=== PATIENT | female | born 1960 | race Asian ===

== ENCOUNTER 2016-08-11 08:02 | Outpatient (CLI) | payer BC ==
[2016-08-11 08:48] LABS: Blood Urea Nitrogen 12 mg/dL (7-17)
--- NOTE | 2016-08-11 09:54 | Magnetic Resonance Report ---
MRI BRAIN WITH/WITHOUT CONTRAST: History: Meningioma, brain mass. Technique: Multiple T1 and T2 weighted images were obtained in multiple planes. Axial diffusion and gradient imaging was performed. Post contrast T1 images in two planes were obtained following IV gadolinium. Findings: No comparison at this facility. There are 2 homogeneously enhancing extra-axial masses in the posterior fossa consistent with meningiomas. One meningioma located along the left side of the foramen magnum and measures 1.7 x 1.6 x 1.8 cm. The mass encircles the left vertebral artery and exerts mild mass effect on the left side of the brainstem. No abnormal parenchymal signal in the brainstem. The second meningioma is located in the prepontine fossa and tracks along the posterior surface of the clivus. This mass measures 3.0 x 3.0 x 1.0 cm. This mass encircles the basilar artery and exerts minimal mass effect on the right side of the rishi. No abnormal parenchymal signal. The brain parenchyma signal intensity and its russell-white interface are normal on all sequences. No abnormal parenchymal signal. No diffusion restriction, hemorrhage, or extra-axial fluid collection. Ventricular size is normal and symmetric. The basal cisterns are clear. The brainstem and cerebellar hemispheres are within normal limits. The fourth ventricle is midline. The paranasal sinuses and mastoid air cells are well aerated. Normal flow voids are identified in the appropriate vessels at the [facility] [place]. No abnormal enhancement is identified following IV gadolinium. Impression: There are 2 homogeneously enhancing extra-axial masses in the posterior fossa consistent with meningiomas. Please see above. The brain parenchyma is within normal limits.
== END 2016-08-11 08:03 | disposition home or self-care (01) ==
LOC: MRI 08:02
DX: D32.0 Benign neoplasm of cerebral meninges (principal)
CPT/HCPCS: 36415; 70553; 82565; 84520; A9577

== ENCOUNTER 2017-06-01 07:17 | Day surgery (SDC) | payer BC ==
[2017-06-01] MEDS ORDERED: ZOFRAN IV PRN (08:30)
--- NOTE | 2017-06-01 08:37 | Anesthesia Consultation ---
Anesthesia Consult and Med Hx Date of service: 06/01/17 - Airway Anesthetic Teeth Evaluation: Good ROM Head & Neck: Adequate Mental/Hyoid Distance: Adequate Mallampati Class: Class III Intubation Access Assessment: Probably Good - Pulmonary Exam CTA: Yes - Cardiac Exam Cardiac Exam: RRR - Pulmonary Hx Smoking: No Hx Asthma: No COPD: No Hx Pneumonia: No Hx Sleep Apnea: No (EDWIGE PRE SCRENN LOW RISK) - Cardiovascular System Hx Hypertension: Yes (X 3YRS) - Central Nervous System Hx Psychiatric Problems: No - Other Systems Hx Cancer: No Hx Obesity: No
[2017-06-01] MEDS ORDERED: DIPRIVAN 10 MG/ML IV ONE (08:55)
[2017-06-01] MEDS ORDERED: VERSED IV NR (09:00)
[2017-06-01] MEDS ORDERED: NEURONTIN PO NR (09:00)
[2017-06-01] MEDS ORDERED: ANCEF/STERILE WATER 2 GM/20 ML IV NR (09:00)
[2017-06-01] MEDS ORDERED: PEPCID PO NR (09:00)
[2017-06-01] MEDS ORDERED: ZOFRAN IV ONE ×2 (09:00→10:15)
[2017-06-01] MEDS ORDERED: LACTATED RINGERS 1,000 ML IV SCH (09:00)
[2017-06-01] MEDS ORDERED: XYLOCAINE MPF 2% ONE (09:03)
[2017-06-01] MEDS ORDERED: SUBLIMAZE ONE (09:14)
[2017-06-01] MEDS ORDERED: ZOFRAN ONE (09:16)
--- NOTE | 2017-06-01 10:06 | Operative Report ---
PREOPERATIVE DIAGNOSIS: Keloid scar of abdomen. POSTOPERATIVE DIAGNOSIS: Keloid scar of abdomen. PROCEDURE: 1. Excision benign neoplasm of abdomen, greater than 4 cm. 2. Complex closure of abdomen 30 cm. SURGEON: Geronimo Gonzalez MD DEPUTY CONTROLLER: Francisco Ly CSA. DESCRIPTION OF PROCEDURE: The patient was brought to the operating room, placed on the table in supine position. Following administration of general anesthesia, the abdomen was prepped with Betadine solution, draped in usual sterile manner. A #10 blade scalpel was used to circumferentially excise the keloid scar of the abdomen and sent to pathology as a specimen. Hemostasis controlled using the electrocautery. Elevation of skin flaps was performed. Closure was performed without undue tension using interrupted and running subcuticular 2-0 Monocryl sutures. Mastisol, Steri-Strips, and sterile dressings applied. The patient tolerated the procedure well and returned to recovery room in stable condition. The patient will be undergoing radiation therapy later this afternoon. JOB# [id number] FTW/NTS
[2017-06-01] MEDS: DILAUDID IV PRN ×3 (10:10→10:30)
[2017-06-01] MEDS ORDERED: PHENERGAN PO NR (10:30)
--- NOTE | 2017-06-01 12:01 | Short Stay Summary ---
Short Stay Documentation Date of service: 06/01/17 - Allergies and Medications Current Medications: Allergies lisinopril Allergy (Verified 02/13/17 10:57) Swelling Home Medications Medication Instructions Recorded Confirmed Last Taken Type Ibuprofen [Motrin 800 MG tab] 800 mg PO Q8HR PRN #30 tablet 11/01/14 06/01/17 1 Week Ago Rx ~05/25/17 Carvedilol [Coreg] 6.25 mg PO BID 06/11/15 06/01/17 05/31/17 History Olmesartan/Amlodipin/Hcthiazid 1 tab PO DAILY 06/11/15 06/01/17 05/31/17 History [Tribenzor 40-10-25 mg] Active Medications Cefazolin Sodium (Ancef/Sterile Water 2 Gm/20 Ml) 2 gm IV PREOP NR Stop: 06/01/17 23:00 Famotidine (Pepcid) 20 mg PO PREOP NR Stop: 06/01/17 23:00 Last Admin: 06/01/17 08:45 Dose: 20 mg Gabapentin (Neurontin) 300 mg PO PREOP NR Stop: 06/01/17 23:00 Last Admin: 06/01/17 08:45 Dose: 300 mg Hydromorphone HCl (Dilaudid) 0.5 mg IV Q10MIN PRN PRN Reason: Pain , Severe (7-10) Last Admin: 06/01/17 10:30 Dose: 0.5 mg Lactated Ringer's (Lactated Ringers) 1,000 mls @ 75 mls/hr IV DIRECT WOODROW Last Admin: 06/01/17 08:46 Dose: 75 mls/hr Midazolam HCl (Versed) 2 mg IV PREOP NR Stop: 06/01/17 23:59 Last Admin: 06/01/17 08:46 Dose: 2 mg Ondansetron HCl (Zofran) 4 mg IV ONCE PRN PRN Reason: Nausea And Vomiting - Brief post op/procedure progress note Date of procedure: 06/01/17 Pre-op diagnosis: Keloid of Abdomen Post-op diagnosis: same Procedure: Excision of Keloid of the Abdomen>4cm Complex Closure 30cm Anesthesia: GETA Surgeon: HOMAR JENKINS JR Estimated blood loss: minimal Specimen disposition: to lab Condition: stable - Disposition Condition at discharge: Good Disposition: DC-01 TO HOME OR SELFCARE Short Stay Discharge Plan Follow up with: FLACO MACK MD [Primary Care Provider] - 7 Days Forms: Outpatient [facility] [place] Inst.
--- NOTE | 2017-06-01 12:03 | Discharge Summary ---
Short Stay Discharge Plan Activity: no restrictions, other (keep surgical site clean and dry; Dressing removal in 72hrs and may shower ; No bathes) Weight Bearing Status: Full Weight Bearing Diet: regular Wound: remove dressing (72hrs) Additional Instructions: PATIENT TO GO TO RADIATION FROM PHASE 2. DRESSING CAN COME OFF IN 72 HOURS. DO NOT SCRUB SURGICAL SITE OR SOAK IN WATER. CALL AND VERIFY APPOINTMENT FOR FOLLOWUP WITH SURGEON. FOLLOW ALL INSTRUCTIONS AND DIRECTIONS GIVEN ON OFFICE BY SURGEON Follow up with: FLACO MACK MD [Primary Care Provider] - 6 Weeks WORK,HOMAR Ojeda JR, MD [Staff Physician] - 7 Days Forms: Outpatient Surgery [place] Inst.
[2017-06-01 12:31] VITALS: BP 128/75
--- NOTE | 2017-06-01 13:20 | Anesthesia Day of Surgery ---
Anesthesia Day of Surgery - Day of Surgery Patient Examined: Yes Patient H&P Reviewed: Yes Patient is NPO: Yes Beta Blockers: Yes
--- NOTE | 2017-06-01 13:21 | Post Anesthesia Evaluation ---
- Post Anesthesia Evaluation Patient Participated: Yes Airway Patent: Yes Stable Respiratory Function: Yes Nausea/Vomiting: No Temp > 96.8F: Yes Pain Manageable: Yes Adequeate Hydration: Yes Anesthesia Complications: No
== END 2017-06-01 12:15 | disposition home or self-care (01) ==
LOC: OR 07:17
PROVIDERS: ATTEND Plastic Surgery
DX: L91.0 Hypertrophic scar (principal); I10 Essential (primary) hypertension; Z88.8 Allergy status to other drugs, medicaments and biological substances
CPT/HCPCS: 11406; 88304; J0690; J1170; J2250; J2405; J2704; J3010; J7120; Q0169

== ENCOUNTER 2018-07-12 08:41 | Outpatient (CLI) | payer BC | END 2018-07-12 08:42 | disposition home or self-care (01) | LOC: ECHO 08:41 | PROVIDERS: ATTEND Internal Medicine Cardiovascular Disease | DX: I08.0 Rheumatic disorders of both mitral and aortic valves (principal); I10 Essential (primary) hypertension; E78.00 Pure hypercholesterolemia, unspecified; Z90.710 Acquired absence of both cervix and uterus | CPT/HCPCS: 93306 ==

== ENCOUNTER 2018-10-11 23:19 | Emergency (ER) | payer BC ==
[2018-10-12] LABS: Basophils % (Auto) 0.9 % (0.0-1.8); Eosinophils # (Auto) 0.1 K/mm3 (0.0-0.4); Eosinophils % (Auto) 2.3 % (0.0-4.3); Hemoglobin 10.9 gm/dl (10.1-14.3); Lymphocytes # (Auto) 2.4 K/mm3 (1.2-5.4); Lymphocytes % (Auto) 50.4 % (13.4-35.0); Mean Corpuscular HGB Conc 33 % (30-34); Mean Corpuscular Volume 80 fl (79-97); Monocytes # (Auto) 0.3 K/mm3 (0.0-0.8); Monocytes % (Auto) 7.3 % (0.0-7.3); Platelet Count 241 K/mm3 (140-440); Red Blood Count 4.11 M/mm3 (3.65-5.03); Red Cell Distribution Width 14.4 % (13.2-15.2)
[2018-10-12 00:17] LABS: Alanine Aminotransferase 12 units/L (7-56); Albumin 3.9 g/dL (3.9-5); BUN/Creatinine Ratio 15; Blood Urea Nitrogen 12 mg/dL (7-17); Calcium 9.3 mg/dL (8.4-10.2); Hemolysis Index 6
[2018-10-12 00:23] LABS: INR 1.36 (0.87-1.13)
--- NOTE | 2018-10-12 01:30 | Emergency Department Report ---
ED Chest Pain HPI - General Chief Complaint: Chest Pain Stated Complaint: CHEST PAIN Time Seen by Provider: 10/11/18 23:38 Source: patient Mode of arrival: Ambulatory Limitations: No Limitations - History of Present Illness Initial Comments: 58-year-old female with a past medical history of hypertension and migraines presents to Hospital complaints of chest robbi since 4 PM. Patient is a charge nurse in the ICU. Symptoms started prior to coming to work and have continued and therefore she came to the ER for evaluation. At time of my evaluation she states that the pain is gradually subsiding. Pain is described as a mild pressure to 417 in intensity that is worse with deep inspiration. She denies nausea, vomiting, diaphoresis, calf tenderness, leg edema, recent travel, or history of PE or DVT. She also denies smoking, family history of CAD, and does not take aspirin daily. Medical record reviewed: patient had a cardiac workup here in 2013. She had a cardiac cath on 06/20/2013 showed normal coronary arteries. LV EF af 45% with mild anterior wall hypokinesis and normal left ventricular end-diastolic pressure. Patient had abnormal troponin at that time (trop was 19 initially and trended down to 4 prior to d/c). Patient also had echocardiogram which showed EF of 30-35% performed on 07/12/2018. There was also abnormal left ventricular diastolic function, moderate dilatation of the left atrium, mild AR, moderate MR metallurgical or materials technician: Dr Barriga Severity scale (0 -10): 5 - Related Data Home Medications Medication Instructions Recorded Confirmed Last Taken Carvedilol [Coreg] 6.25 mg PO BID 06/11/15 10/12/18 05/31/17 amLODIPine [Norvasc] 10 mg PO DAILY 10/12/18 10/12/18 2 Days Ago ~10/10/18 Allergies Allergy/AdvReac Type Severity Reaction Status Date / Time lisinopril Allergy Swelling Verified 10/12/18 00:01 Heart Score - HEART Score History: Slightly suspicious EKG: Non-specific Age: 45-65 Risk factors: 1-2 risk factors Troponin: < normal limit HEART Score: 3 ED Review of Systems ROS: Stated complaint: CHEST PAIN Other details as noted in HPI Comment: All other systems reviewed and negative ED Past Medical Hx - Past Medical History Hx Hypertension: Yes (X 3YRS) Hx Congestive Heart Failure: No Hx Diabetes: No Hx Headaches / Migraines: Yes (MIGRAINES - NOT RECENT) Hx Asthma: No Hx COPD: No Hx Tuberculosis: No (POSITIVE SKIN TEST , NEGATIVE CXR) Hx HIV: No - Surgical History Hx Breast Surgery: Yes (BREAST REDUCTION 05/2015) - Social History Smoking Status: Never Smoker Substance Use Type: None - Medications Home Medications: Home Medications Medication Instructions Recorded Confirmed Last Taken Type Carvedilol [Coreg] 6.25 mg PO BID 06/11/15 10/12/18 05/31/17 History amLODIPine [Norvasc] 10 mg PO DAILY 10/12/18 10/12/18 2 Days Ago History ~10/10/18 ED Physical Exam - General Limitations: No Limitations - Other Other exam information: General: No limitations, patient is alert in no acute distress Head exam: Atraumatic, normocephalic Eyes exam: Normal appearanc ENT: Moist mucous membrane, normal oropharynx Neck exam: Normal inspection, full range of motion, no meningismus nontender Respiratory exam: Clear to auscultation bilateral, no wheezes, rales, crackles, chest wall nontender Cardiovascular: Normal rate and rhythm, normal heart sounds Abdomen: Soft, nondistended, and nontender, with normal bowel sounds, no rebound, or guarding Extremity: Full range of motion normal inspection no deformity Back: Normal Inspection, full range of motion, no tenderness, no calf tenderness or leg edema Neurologic: Alert, oriented x3, cranial nerves intact, no motor or sensory deficit Psychiatric: normal affect, normal mood Skin: Warm, dry, intact ED Course Vital Signs 10/11/18 10/11/18 10/12/18 23:45 23:54 00:00 Temperature 97.9 F Pulse Rate 78 78 74 Respiratory 18 16 16 Rate Blood Pressure 132/82 Blood Pressure 149/96 [Right] O2 Sat by Pulse 99 99 Oximetry 10/12/18 10/12/18 10/12/18 00:15 00:31 00:45 Temperature Pulse Rate 80 74 72 Respiratory 23 18 16 Rate Blood Pressure 132/82 132/82 132/82 Blood Pressure [Right] O2 Sat by Pulse 97 100 98 Oximetry 10/12/18 10/12/18 10/12/18 01:01 01:15 01:35 Temperature Pulse Rate 71 85 76 Respiratory 16 17 23 Rate Blood Pressure 132/82 132/82 132/82 Blood Pressure [Right] O2 Sat by Pulse 98 Oximetry 10/12/18 10/12/18 10/12/18 01:45 02:01 02:15 Temperature Pulse Rate 77 73 72 Respiratory 22 16 17 Rate Blood Pressure 132/82 132/82 132/82 Blood Pressure [Right] O2 Sat by Pulse 95 96 97 Oximetry 10/12/18 10/12/18 10/12/18 02:31 02:45 03:00 Temperature Pulse Rate 70 66 71 Respiratory 18 17 12 Rate Blood Pressure 132/82 132/82 133/88 Blood Pressure [Right] O2 Sat by Pulse 98 98 98 Oximetry - Consultations Consultation #1: 10/12/18 01:46 case d/w Dr rivera who recommends admission for chest pain. MARTINE score - Martine Score Age > 65: (0) No Aspirin use within the Past 7 Days: (0) No 3 or more CAD Risk Factors: (0) No 2 or more Angina events in past 24 hrs: (1) Yes Known CAD with more than 50% Stenosis: (0) No Elevated Cardiac Markers: (0) No ST Deviation Greater than 0.5mm: (0) No MARTINE Score: 1 ED Medical Decision Making - Lab Data Result diagrams: 10/11/18 23:54 10/11/18 23:54 Lab Results 10/11/18 10/11/18 10/11/18 Range/Units 23:54 23:54 23:54 WBC 4.7 (4.5-11.0) K/mm3 RBC 4.11 (3.65-5.03) M/mm3 Hgb 10.9 (10.1-14.3) gm/dl Hct 33.0 (30.3-42.9) % MCV 80 (79-97) fl MCH 27 L (28-32) pg MCHC 33 (30-34) % RDW 14.4 (13.2-15.2) % Plt Count 241 (140-440) K/mm3 Lymph % (Auto) 50.4 H (13.4-35.0) % Placer % (Auto) 7.3 (0.0-7.3) % Eos % (Auto) 2.3 (0.0-4.3) % Baso % (Auto) 0.9 (0.0-1.8) % Lymph # 2.4 (1.2-5.4) K/mm3 Placer # 0.3 (0.0-0.8) K/mm3 Eos # 0.1 (0.0-0.4) K/mm3 Baso # 0.0 (0.0-0.1) K/mm3 Seg Neutrophils % 39.1 L (40.0-70.0) % Seg Neutrophils # 1.8 (1.8-7.7) K/mm3 PT 16.4 H (12.2-14.9) Sec. INR 1.36 H (0.87-1.13) APTT 28.0 (24.2-36.6) Sec. D-Dimer (0-234) ng/mlDDU Sodium 141 (137-145) mmol/L Potassium 3.7 (3.6-5.0) mmol/L Chloride 103.4 (98-107) mmol/L Carbon Dioxide 24 (22-30) mmol/L Anion Gap 17 mmol/L BUN 12 (7-17) mg/dL Creatinine 0.8 (0.7-1.2) mg/dL Estimated GFR > 60 ml/min BUN/Creatinine Ratio 15 % Glucose 112 H (65-100) mg/dL Calcium 9.3 (8.4-10.2) mg/dL Total Bilirubin 0.20 (0.1-1.2) mg/dL AST 19 (5-40) units/L ALT 12 (7-56) units/L Alkaline Phosphatase 89 (35-129) units/L Troponin T < 0.010 (0.00-0.029) ng/mL Total Protein 6.7 (6.3-8.2) g/dL Albumin 3.9 (3.9-5) g/dL Albumin/Globulin Ratio 1.4 % 10/12/18 Range/Units 00:19 WBC (4.5-11.0) K/mm3 RBC (3.65-5.03) M/mm3 Hgb (10.1-14.3) gm/dl Hct (30.3-42.9) % MCV (79-97) fl MCH (28-32) pg MCHC (30-34) % RDW (13.2-15.2) % Plt Count (140-440) K/mm3 Lymph % (Auto) (13.4-35.0) % Placer % (Auto) (0.0-7.3) % Eos % (Auto) (0.0-4.3) % Baso % (Auto) (0.0-1.8) % Lymph # (1.2-5.4) K/mm3 Placer # (0.0-0.8) K/mm3 Eos # (0.0-0.4) K/mm3 Baso # (0.0-0.1) K/mm3 Seg Neutrophils % (40.0-70.0) % Seg Neutrophils # (1.8-7.7) K/mm3 PT (12.2-14.9) Sec. INR (0.87-1.13) APTT (24.2-36.6) Sec. D-Dimer 592.4 H (0-234) ng/mlDDU Sodium (137-145) mmol/L Potassium (3.6-5.0) mmol/L Chloride (98-107) mmol/L Carbon Dioxide (22-30) mmol/L Anion Gap mmol/L BUN (7-17) mg/dL Creatinine (0.7-1.2) mg/dL Estimated GFR ml/min BUN/Creatinine Ratio % Glucose (65-100) mg/dL Calcium (8.4-10.2) mg/dL Total Bilirubin (0.1-1.2) mg/dL AST (5-40) units/L ALT (7-56) units/L Alkaline Phosphatase (35-129) units/L Troponin T (0.00-0.029) ng/mL Total Protein (6.3-8.2) g/dL Albumin (3.9-5) g/dL Albumin/Globulin Ratio % - EKG Data -: EKG Interpreted by [place] EKG shows normal: sinus rhythm (qr), axis (qrs 24), QRS complexes (qrsd 157), ST-T waves (no stemi, New LBB) Rate: normal (77) - EKG Data When compared to previous EKG there are: no significant change (05/2015) - Radiology Data Radiology results: report reviewed PROCEDURE: Chest. TECHNIQUE: Portable AP view. HISTORY: Chest pain. COMPARISONS: None. FINDINGS: The heart size is normal. There is mild tortuosity of the thoracic aorta. The lungs are clear and well expanded. There are no pleural effusions. The soft tissues and regional skeleton are unremarkable. IMPRESSION: Negative portable chest. PROCEDURE: CT ANGIO CHEST TECHNIQUE: Computerized tomographic angiography of the chest was performed after the IV injection of iodinated nonionic contrast including image processing. Images are reconstructed in the sagittal and coronal plane HISTORY: cp, elevated d-dimer COMPARISONS: None . FINDINGS: There is no evidence of PE. The pulmonary arteries opacify normally. The heart is enlarged secondary to left ventricular and atrial enlargement.. The thoracic aorta is nonaneurysmal and there is no evidence of dissection. The interstitial markings are mildly prominent. There is no evidence of pleural effusion. There is multilevel degenerative disc disease of the thoracic spine. Images through the upper abdomen show calcified stone in the gallbladder. There is a cyst in the right kidney, incompletely scanned. IMPRESSION: 1. No evidence of PE 2. Cardiomegaly 3. Mildly prominent interstitial markings are nonspecific but may be secondary to mild pulmonary edema. 4. Cholelithiasis without CT evidence of acute cholecystitis - Medical Decision Making EKG today shows left bundle-branch branch block block without a previous LBB on previous EKGs available in [place]. Patient states she does have a history of LBBB in the past. Case discussed with metallurgical or materials technician who recommends admission. At 2:11 AM patient declines admission at this time. She is willing to wait for her second troponin result which is due soon and her CT angiogram chest was all prior to signing out AGAINST MEDICAL ADVICE. Case has been signed out to Dr. andres to follow up on these results and re-discussed possible admission with the patient. If she still declines admission she may sign out AGAINST MEDICAL ADVICE with plan to fo llow-up with her metallurgical or materials technician as and outpatient. - Differential Diagnosis unstable angina, atypical chest pain, DE, pulmonary embolism Critical Care Time: No Critical care attestation.: If time is entered above; I have spent that time in minutes in the direct care of this critically ill patient, excluding procedure time. ED Disposition Clinical Impression: Chest pain Disposition: -07 LEFT AGAINST MED ADVICE Is pt being admited?: No Condition: Stable Instructions: Chest Pain (ED) Referrals: WAYLON GUTIERREZ MD [Staff Physician] - 24 Hours Forms: AMA Form
--- NOTE | 2018-10-12 01:30 | XRay Report ---
PROCEDURE: Chest. TECHNIQUE: Portable AP view. HISTORY: Chest pain. COMPARISONS: None. FINDINGS: The heart size is normal. There is mild tortuosity of the thoracic aorta. The lungs are clear and wel l expanded. There are no pleural effusions. The soft tissues and regional skeleton are unremarkable. IMPRESSION: Negative portable chest. This document is electronically signed by Luan Peña MD., October 12 2018 01:28:51 AM ET
[2018-10-12] MEDS ORDERED: ASPIRIN PO ONE (01:32)
--- NOTE | 2018-10-12 02:59 | Cat Scan Report ---
PROCEDURE: CT ANGIO CHEST TECHNIQUE: Computerized tomographic angiography of the chest was performed after the IV injection of iodinated nonionic contrast including image processing. Images are reconstructed in the sagittal and coronal plane HISTORY: cp, elevated d-dimer COMPARISONS: None . FINDINGS: There is no evidence of PE. The pulmonary arteries opacify normally. The heart is enlarged secondary to left ventricular and atrial enlargement.. The thoracic aorta is nonaneurysmal and there is no evidence of dissection. The interstitial markings are mildly prominent. There is no evidence of pleural effusion. There is multilevel degenerative disc disease of the thoracic spine. Images through the upper abdomen show calcified stone in the gallbladder. There is a cyst in the righ t kidney, incompletely scanned. IMPRESSION: 1. No evidence of PE 2. Cardiomegaly 3. Mildly prominent interstitial markings are nonspecific but may be secondary to mild pulmonary margarette a. 4. Cholelithiasis without CT evidence of acute cholecystitis This document is electronically signed by Mikki Valera MD., October 12 2018 02:57:07 AM ET
[2018-10-12 03:49] VITALS: BP 133/88
== END 2018-10-12 04:02 | disposition left against medical advice (07) ==
LOC: ED 23:19
DX: R07.89 Other chest pain (principal); I10 Essential (primary) hypertension; G43.909 Migraine, unspecified, not intractable, without status migrainosus; Z79.899 Other long term (current) drug therapy; Z88.8 Allergy status to other drugs, medicaments and biological substances
CPT/HCPCS: 36415; 71045; 71275; 80053; 84484; 85025; 85379; 85610; 85730; 93005; 93010; 99285; Q9967

== ENCOUNTER 2018-11-30 07:40 | Outpatient (CLI) | payer BC | END 2018-11-30 07:41 | disposition home or self-care (01) | LOC: LAB 07:40 | PROVIDERS: ATTEND Internal Medicine | DX: J45.901 Unspecified asthma with (acute) exacerbation (principal); J20.9 Acute bronchitis, unspecified; I10 Essential (primary) hypertension; E78.00 Pure hypercholesterolemia, unspecified | CPT/HCPCS: 36415; 82785; 84436; 84443 ==

== ENCOUNTER 2018-12-23 08:26 | Outpatient (CLI) | payer BC ==
[2018-12-23] MEDS ORDERED: LEXISCAN IV ONE ×2 (09:48→11:46)
[2018-12-23 11:50] VITALS: BP 129/76
--- NOTE | 2018-12-24 09:12 | Treadmill Report ---
SINGLE ISOTOPE DUAL STUDY MYOCARDIAL PERFUSION SCAN REPORT AGE: 58. SEX: Female. REFERRING AUTOMATION MECHANIC: Dr. Debi Hill. Seen and dictated by Dr. Iliana John. The patient received 10 mCi of technetium 99m Myoview intravenously under resting conditions. Resting myocardial perfusion scan was done. Subsequently, the patient underwent Lexiscan stress test as per the protocol. The patient received 0.4 mg of intravenous Lexiscan during the stress test.28 mci of Technetium 99 M myoview was given IV during the stress test. After 30-60 minutes, post stress images were done. Computerized reconstruction images was performed for analysis. The post-stress images revealed small mild mid anterior wall perfusion defect. A small mild basal septal perfusion was also seen. Cinematic display of the gated study revealed a moderate global left ventricular systolic dysfunction with LVEF around 40%. There was no reperfusion of the perfusion defect seen in the stress images. CONCLUSION: 1. Small mild fixed mid anterior wall perfusion defect. 2. Small mild fixed basal septal perfusion defect. 3. Moderate global left ventricular hypokinesia with moderate systolic dysfunction with LVEF around 40%. JOB# [id number] CELESTE/ILDA VILLA
== END 2018-12-23 08:27 | disposition home or self-care (01) ==
LOC: ECHO 08:26
PROVIDERS: ATTEND Internal Medicine Cardiovascular Disease
DX: I08.3 Combined rheumatic disorders of mitral, aortic and tricuspid valves (principal); I10 Essential (primary) hypertension; E78.00 Pure hypercholesterolemia, unspecified
CPT/HCPCS: 78452; 93017; 93306; A9502; J2785

== ENCOUNTER 2020-10-05 06:29 | Outpatient (CLI) | payer BC ==
[2020-10-05] MEDS ORDERED: SODIUM CHLORIDE 0.9% 500 ML 500 ML IV SCH (07:00)
[2020-10-05] MEDS ORDERED: BENZOCAINE 20% TOP SPRAY 0.5 ML UNIT DOSE MM NR (07:00)
--- NOTE | 2020-10-05 07:15 | Anesthesia Consultation ---
Anesthesia Consult and Med Hx Date of service: 10/05/20 - Airway Anesthetic Teeth Evaluation: Good ROM Head & Neck: Adequate Mental/Hyoid Distance: Adequate Mallampati Class: Class II Intubation Access Assessment: Good - Pulmonary Exam CTA: Yes - Cardiac Exam Cardiac Exam: RRR - Pre-Operative Health Status ASA Pre-Surgery Classification: ASA2 Proposed Anesthetic Plan: MAC - Pulmonary Hx Smoking: No Hx Asthma: No COPD: No Hx Pneumonia: No Hx Sleep Apnea: No (EDWIGE PRE SCRENN LOW RISK) - Cardiovascular System Hx Hypertension: Yes - Central Nervous System Hx Psychiatric Problems: No - Other Systems Hx Cancer: No Hx Obesity: No
--- NOTE | 2020-10-05 07:15 | Anesthesia Day of Surgery ---
Anesthesia Day of Surgery - Day of Surgery Patient Examined: Yes Patient H&P Reviewed: Yes Patient is NPO: Yes Beta Blockers: Yes
[2020-10-05] MEDS ORDERED: ONDANSETRON 4 MG/2 ML INJ ONE (07:31)
[2020-10-05] MEDS ORDERED: propofoL 200 MG/20 ML VIAL IV ONE ×2 (07:32→08:05)
[2020-10-05] MEDS ORDERED: MIDAZOLAM 2 MG/2 ML INJ ONE (07:32)
--- NOTE | 2020-10-05 11:11 | Short Stay Summary ---
Short Stay Documentation Date of service: 10/05/20 - History H&P: obtained from office - Allergies and Medications Current Medications: Allergies lisinopril Allergy (Verified 10/12/18 00:01) Swelling Home Medications Medication Instructions Recorded Confirmed Last Taken Type carvediloL [Coreg] 6.25 mg PO BID 06/11/15 10/12/18 05/31/17 History amLODIPine [Norvasc] 10 mg PO DAILY 10/12/18 10/12/18 2 Days Ago History ~10/10/18 Active Medications Benzocaine (Benzocaine 20% Top [place] 0.5 Ml Unit Dose) 3 spray MM PREOP NR Stop: 10/05/20 18:00 Sodium Chloride (Nacl 0.9% 500 Ml) 500 mls @ 50 mls/hr IV DIRECT WOODROW - Brief post op/procedure progress note Date of procedure: 10/05/20 Pre-op diagnosis: Severe Mitral Regurg Post-op diagnosis: same Procedure: JIMENA see dictated op report Anesthesia: local Estimated blood loss: none Condition: stable - Disposition Condition at discharge: Good Disposition: DC-01 TO HOME OR SELFCARE - Discharge Diagnoses (1) Mitral regurgitation Status: Acute Short Stay Discharge Plan Activity: advance as tolerated Diet: low fat, low cholesterol, low salt Wound: open to air, keep clean and dry, per your surgeon's advice Follow up with: FLACO MACK MD [Primary Care Provider] - 7 Days WAYLON HILL MD [Staff Physician] - 7 Days (Patient should follow-up with Dr. Hill, [facility] heart specialists in our [place] location on 11/23/2020 at 8:45 AM. #[id number])
--- NOTE | 2020-10-05 15:41 | Post Anesthesia Evaluation ---
- Post Anesthesia Evaluation Patient Participated: Yes Airway Patent: Yes Stable Respiratory Function: Yes Nausea/Vomiting: No Temp > 96.8F: Yes Pain Manageable: Yes Adequeate Hydration: Yes Anesthesia Complications: No Block Receding Appropriately: Not Applicable Patient on Ventilator: No
[2020-10-05 19:46] VITALS: BP 110/84
== END 2020-10-05 11:45 | disposition home or self-care (01) ==
LOC: CATHLABREC 06:29
PROVIDERS: ATTEND Internal Medicine Cardiovascular Disease
DX: I34.0 Nonrheumatic mitral (valve) insufficiency (principal); I25.2 Old myocardial infarction; I10 Essential (primary) hypertension; E78.5 Hyperlipidemia, unspecified; G43.909 Migraine, unspecified, not intractable, without status migrainosus; Z98.890 Other specified postprocedural states; Z88.8 Allergy status to other drugs, medicaments and biological substances; Z79.899 Other long term (current) drug therapy; Z83.3 Family history of diabetes mellitus; Z82.61 Family history of arthritis; Z86.2 Personal history of diseases of the blood and blood-forming organs and certain disorders involving the immune mechanism
CPT/HCPCS: 93312; 93320; 93325; J2250; J2405; J2704; J7040

== ENCOUNTER 2021-01-11 06:37 | Day surgery (SDC) | payer BC ==
[2021-01-11] MEDS ORDERED: SODIUM CHLORIDE 0.9% 500 ML 500 ML IV SCH (07:00)
[2021-01-11 07:23] LABS: Eosinophils # (Auto) 0.1 K/mm3 (0.0-0.4); Eosinophils % (Auto) 1.9 % (0.0-4.3); Hematocrit 35.4 % (30.3-42.9); Hemoglobin 11.9 gm/dl (10.1-14.3); Lymphocytes # (Auto) 2.1 K/mm3 (1.2-5.4); Lymphocytes % (Auto) 47.5 % (13.4-35.0); Mean Corpuscular HGB Conc 34 % (30-34); Mean Corpuscular Volume 82 fl (79-97); Monocytes # (Auto) 0.4 K/mm3 (0.0-0.8); Platelet Count 196 K/mm3 (140-440); Red Blood Count 4.31 M/mm3 (3.65-5.03); Red Cell Distribution Width 14.1 % (13.2-15.2)
[2021-01-11] MEDS ORDERED: ASPIRIN EC 325 MG TAB PO NR (07:30)
[2021-01-11 07:35] LABS: INR 1.15 (0.87-1.13)
[2021-01-11 07:37] LABS: BUN/Creatinine Ratio 18; Blood Urea Nitrogen 14 mg/dL (7-17); Calcium 9.1 mg/dL (8.4-10.2); Hemolysis Index 76
[2021-01-11] MEDS ORDERED: HEPARIN/NS 5000 UNIT/500ML 1,000 ML IR ONE (08:20)
[2021-01-11] MEDS ORDERED: HEPARIN 10,000 UNITS/10 ML VIAL ONE (08:21)
[2021-01-11] MEDS ORDERED: LIDOCAINE (2%) 20 MG/1 ML VIAL 20 ML MDV INFILTRATI ONE (08:21)
[2021-01-11] MEDS ORDERED: VERAPAMIL 5 MG/2 ML INJ ONE (08:21)
[2021-01-11] MEDS ORDERED: NITROGLYCERIN SYRINGE 3 ML ONE (08:22)
[2021-01-11] MEDS ORDERED: fentaNYL 100 MCG/2 ML INJ ONE (08:23)
--- NOTE | 2021-01-11 08:51 | Electrocardiograph Report ---
[facility] Test Date: 2021-01-11 Test Time: 07:57:02 Pat Name: JONO NGUYEN Department: Room: Gender: F Industrial Pipefitter Journeyman: FELICITY : 1960 Requested By: ALEXANDER COSBY Order Number: [id number] Reading MD: Alexander Cosby Measurements Intervals [place] Rate: 59 P: 63 NV: 183 QRS: -50 QRSD: 165 T: 34 QT: 496 QTc: 492 Interpretive Statements Sinus rhythm Left bundle branch block No previous ECG available for comparison Electronically Signed On 01-11-2021 8:51:11 EDT by Alexander Cosby
[2021-01-11] MEDS: MIDAZOLAM 2 MG/2 ML INJ ONE ×2 (09:25→09:47)
[2021-01-11] MEDS ORDERED: PHENYLEPHRINE/NS 1,000 MCG/10 ML SYRINGE (OR USE) IV ONE (09:40)
[2021-01-11] MEDS ORDERED: HYDROcodone/ACETAMINOPHEN 5-325 MG TAB PO PRN (10:00)
[2021-01-11] MEDS ORDERED: traMADol 50 MG TAB PO PRN (10:00)
--- NOTE | 2021-01-11 10:03 | Short Stay Summary ---
Short Stay Documentation Date of service: 01/11/21 Narrative H&P: 60-year-old female with decrease in LV function with severe mitral regurgitation had a cardiothoracic evaluation up in [place] suggest right and left heart catheterization in view of new LV dysfunction and severity of mitral regurgitation patient is compensated heart failure. - History Past Medical History: heart failure, hypertension Past Surgical History: No surgical history Social history: no significant social history - Allergies and Medications Current Medications: Allergies lisinopril Allergy (Verified 10/12/18 00:01) Swelling Home Medications Medication Instructions Recorded Confirmed Last Taken Type carvediloL [Coreg] 6.25 mg PO BID 06/11/15 01/11/21 01/11/21 History Active Medications Sodium Chloride (Nacl 0.9% 500 Ml) 500 mls @ 50 mls/hr IV DIRECT WOODROW Stop: 01/11/21 16:59 Last Admin: 01/11/21 08:25 Dose: 50 mls/hr Documented by: - Physical exam General appearance: no acute distress Integumentary: no rash HEENT: PERRLA Lungs: Clear to auscultation Breasts: deferred Heart: Regular rate, Murmur Gastrointestinal: normal Female Genitourinary: deferred Rectal Exam: deferred Extremities: no ischemia Neurological: Normal gait - Brief post op/procedure progress note Date of procedure: 01/11/21 Pre-op diagnosis: cardiomyopathy and mr Post-op diagnosis: same Procedure: see report normal coronaries moderate LV dysfunction normal pulmonary pressures Anesthesia: local Estimated blood loss: minimal Pathology: none - Disposition Condition at discharge: Good Disposition: 01 HOME / SELF CARE / HOMELESS - Discharge Diagnoses (1) Cardiomyopathy Status: Chronic Qualifiers: Cardiomyopathy type: dilated Qualified Code(s): I42.0 - Dilated cardiomyopathy (2) Hyperglycemia Status: Chronic (3) Mitral regurgitation Status: Chronic Qualifiers: Cardiac valve disease etiology: nonrheumatic Qualified Code(s): I34.0 - Nonrheumatic mitral (valve) insufficiency (4) HTN (hypertension) Status: Chronic Qualifiers: Hypertension type: primary hypertension Qualified Code(s): I10 - Essential (primary) hypertension Short Stay Discharge Plan Activity: advance as tolerated Diet: low fat, low cholesterol, low salt Wound: keep clean and dry Follow up with: FLACO MACK MD [Primary Care Provider] - 7 Days
--- NOTE | 2021-01-11 10:13 | Cardiac Catherization Report ---
DATE OF SERVICE: 01/11/2021 LEFT AND RIGHT HEART CATHETERIZATION CLINICAL INFORMATION: This is a 60-year-old female who has severe mitral regurgitation with moderate LV dysfunction is here for left heart right catheterization for possible valve replacement with the patient has left bundle branch block, has hypertension, hyperlipidemia. Procedure was done with moderate sedation started at 09:20, finished at 09:45, 25 minutes of moderate sedation. DESCRIPTION OF PROCEDURE: Right heart catheterization was done via the right brachial vein 6-[place] sheath placed in. Left heart catheterization was done via the right radial artery, sterile technique and local anesthesia, a normal Lucho's test, a 6-[place] radial sheath inserted. Right heart catheter was placed and saturations were done, which revealed a wedge of 16 mmHg, PA was 28/17, RV was 32/4 mmHg, RA was 12, PA sat was 58%, RV sat 59%, RA sat 61%, AO sat 97%. Qp/Qs was 1. Cardiac output by Quinton was 4.38. Cardiac index was 2.28. PVR was 20. SVR was 986. Left heart catheterization revealed left main was engaged with a JL3.5 catheter. Left main is large and patent, trifurcates to large LAD is patent. Ramus large caliber was patent. Circumflex, large caliber patent. OM1 is a medium caliber vessel, patent. RCA is a small to medium caliber patent. Small PDA, patent. LV gram done in LATVIAN and PARMAR view shows moderate LV dysfunction, LVEDP of 24 mmHg, LV is 131, aortic is 131/75. No gradient across the aortic valve on pullback. A 5-[place] catheters all taken. A 6-[place] radial sheath and 6-[place] brachial sheath was discontinued. Radial band was applied and manual pressure held. A pressure dressing with no hematoma, no bleeding. SUMMARY: Normal pulmonary pressures with wedge of 16 mmHg, PA was 28/70 mmHg, RV was 32/4 mmHg, RA was 12 mmHg and there was no step-up and step-down noted. Aortic pressure was 132/75, LV pressure 132/22 mmHg. Normal coronaries, moderate LV dysfunction, nonischemic cardiomyopathy. The patient will follow up with primary lacquer sprayer. Discussed with the patient in detail and primary lacquer sprayer. TID: [id number] RECEIPT: [id number] VRM/AMI
[2021-01-11 13:52] VITALS: BP 106/64
== END 2021-01-11 12:55 | disposition home or self-care (01) ==
LOC: CATHLABREC 06:37
PROVIDERS: ATTEND Internal Medicine
DX: I34.0 Nonrheumatic mitral (valve) insufficiency (principal); I10 Essential (primary) hypertension; E78.00 Pure hypercholesterolemia, unspecified; Z79.899 Other long term (current) drug therapy; Z98.890 Other specified postprocedural states; Z88.8 Allergy status to other drugs, medicaments and biological substances; Z83.3 Family history of diabetes mellitus
CPT/HCPCS: 36415; 80048; 85025; 85610; 85730; 93005; 93460; 99156; 99157; C1894; J1644; J2250; J2370; J3010; J7040; Q9967

== ENCOUNTER 2021-08-06 18:53 | Emergency (ER) | payer BC ==
--- NOTE | 2021-08-06 20:22 | Emergency Department Report ---
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 Patient does not recall injury incident. However has been no fall or trauma. Pain is described as a 5/10 aching sharp nagging. Pain is exacerbated by movement. Pain relieved by nothing tried. There is no numbness no tingling no paralysis no ecchymosis no bleeding no laceration. Patient denies other complaint. ED Review of Systems ROS: Stated complaint: RT SHOULDER PAIN Other details as noted in HPI Constitutional: denies: chills, fever Eyes: denies: eye pain, eye discharge, vision change ENT: denies: ear pain, throat pain Respiratory: denies: cough, shortness of breath, wheezing Cardiovascular: denies: chest pain, palpitations Endocrine: no symptoms reported Gastrointestinal: denies: abdominal pain, nausea, diarrhea Genitourinary: denies: urgency, dysuria, discharge Musculoskeletal: arthralgia, myalgia Skin: denies: rash, lesions Neurological: denies: headache, weakness, paresthesias, vertigo Psychiatric: denies: anxiety, depression Hematological/Lymphatic: denies: easy bleeding, easy bruising ED Past Medical Hx - Past Medical History Previous Medical History?: Yes Hx Hypertension: Yes Hx Congestive Heart Failure: No Hx Diabetes: No Hx Headaches / Migraines: Yes (MIGRAINES - NOT RECENT) Hx Asthma: No Hx COPD: No Hx Tuberculosis: No (POSITIVE SKIN TEST , NEGATIVE CXR) Hx HIV: No - Surgical History Past Surgical History?: Yes Hx Breast Surgery: Yes (BREAST REDUCTION 05/2015) - Social History Smoking Status: Never Smoker - Medications Home Medications: Home Medications Medication Instructions Recorded Confirmed Last Taken Type carvediloL [Coreg] 6.25 mg PO BID 06/11/15 01/11/21 01/11/21 History Acetaminophen [Acetaminophen TAB] 1,000 mg PO Q6HR PRN #30 tablet 08/06/21 Unknown Rx Menthol/Camphor [[place] 1 applicatio TP Q6H PRN #1 tube 08/06/21 Unknown Rx Ointment] predniSONE [Deltasone] 20 mg PO QDAY 5 Days #5 tab 08/06/21 Unknown Rx Upper Extremity Exam - Exam General: Vital signs noted. No distress. Alert and acting appropriately. Head and Torso: No HEENT Abnormality, No Neck Tenderness, No Chest/Lungs Abnormality, No Abdominal Tenderness, No Back Tenderness Shoulder Exam: Yes Shoulder Tenderness (Right AC joint right posterior lateral muscle glimepiride), Yes Normal Range of Motion in Shoulder, Yes AC Joint Tenderness, No Clavicle Tenderness, No Shoulder Deformity Arm Exam: No Arm/Humerus Tenderness, No Arm Deformity Elbow: No Elbow Tenderness, No Normal Range of Motion in Elbow, No Elbow Deformity Forearm: No Forearm Tenderness, No Forearm Deformity, No Pain with Pronation, No Pain with Supination Wrist: Yes Normal ROM in Wrist, No Wrist Tenderness, No Wrist Deformity, No Snuffbox Tenderness, No Pain with Axial Thumb Compression Hand: Yes Normal ROM in Digit(s), No Hand Tenderness, No Hand Deformity, No Digit Tenderness, No Digit(s) Deformity, No Tendon Dysfunction CMS Exam: Yes Normal Distal Pulses, No Broken Skin ED Course Vital Signs 08/06/21 19:08 Temperature 98.6 F Pulse Rate 86 Respiratory 16 Rate Blood Pressure 127/76 [Left] O2 Sat by Pulse 99 Oximetry ED Medical Decision Making - Radiology Data Radiology results: report reviewed, image reviewed No fracture no subluxation no dislocation degenerative changes noted with marty cification. - Medical Decision Making , Pain is improved, distal pulses intact range of motion sent shoulder drops intact. Is a degenerative changes right AC joint plan NSAIDs, steroids, analgesic balm, follow-up with orthopedics in 2 to 3 days. Patient verbalized agreement understanding with discharge plan. Patient DC'd home in stable condition at this time. Critical care attestation.: If time is entered above; I have spent that time in minutes in the direct care of this critically ill patient, excluding procedure time. ED Disposition Clinical Impression: Arthralgia of shoulder region, right Disposition: 01 HOME / SELF CARE / HOMELESS Is pt being admited?: No Does the pt Need Aspirin: No Condition: Stable Instructions: Musculoskeletal Pain, Shoulder Pain, [id number] Additional Instructions: Follow-up with orthopedics in 2 to 3 days. Take medications as prescribed, use moist heat therapy and shoulder exercises as directed. Return to emergency department if symptoms worsen. Prescriptions: Acetaminophen [Acetaminophen TAB] 1,000 mg PO Q6HR PRN #30 tablet PRN Reason: Pain predniSONE [Deltasone] 20 mg PO QDAY 5 Days #5 tab Menthol/Camphor [[place] Ointment] 1 applicatio TP Q6H PRN #1 tube PRN Reason: pain Referrals: CARLYN GUZMAN MD [Staff Physician] - 3-5 Days Forms: Work/School Release Form(ED) Time of Disposition: 21:10
--- NOTE | 2021-08-06 21:03 | XRay Report ---
RIGHT SHOULDER 3 VIEW(S) INDICATION / CLINICAL INFORMATION: injury COMPARISON: None available. FINDINGS: BONES / JOINT(S): No acute fracture or subluxation. Mild degenerative change of the acromioclavicular joint. There is a 6 mm focus of calcification likely within the infraspinatus tendon which could ref lect calcific tendinitis. SOFT TISSUES: No significant abnormality. ADDITIONAL FINDINGS: None. Signer Name: Eliezer Lugo MD Signed: 08/06/2021 8:59 PM Workstation Name: [id number]
[2021-08-06 21:36] VITALS: BP 127/71
== END 2021-08-06 21:35 | disposition home or self-care (01) ==
LOC: ED 18:53
DX: M25.511 Pain in right shoulder (principal); I10 Essential (primary) hypertension; G43.909 Migraine, unspecified, not intractable, without status migrainosus; Z98.890 Other specified postprocedural states; Z79.899 Other long term (current) drug therapy; Z88.8 Allergy status to other drugs, medicaments and biological substances
CPT/HCPCS: 99283

== ENCOUNTER 2021-11-01 10:30 | Outpatient (CLI) | payer OTHER ==
--- NOTE | 2021-11-01 14:16 | Magnetic Resonance Report ---
MRI RIGHT SHOULDER WITHOUT CONTRAST INDICATION / CLINICAL INFORMATION: M25.511 SHOULDER PAIN,M75.121 POSSIBLE TEAR OF ROTATOR CUFF. TECHNIQUE: Multiplanar, multisequence MR images were obtained. No contrast used. COMPARISON: Radiograph dated 08/06/21 FINDINGS: SUPRASPINATUS: Tendinosis without significant tear. INFRASPINATUS: Tendinosis without significant tear. No calcific tendinitis on the current study. SUBSCAPULARIS: No significant abnormality. BICEPS TENDON, LONG HEAD: Intra-articular tendinosis with partial tear. GLENOID LABRUM: Degenerative fraying of the superior labrum. ARTICULAR CARTILAGE: No significant abnormality. JOINT SPACE / CAPSULE: No significant abnormality. ACROMION / A.C. JOINT: Mild AC joint degenerative arthrosis with mild encroachment on the rotator cuf f. SUBACROMIAL/SUBDELTOID SPACE: Trace fluid. BONES: No significant bone marrow edema. No fracture. No osseous lesion. SOFT TISSUES: No significant abnormality. ADDITIONAL FINDINGS: None. IMPRESSION: 1. No significant rotator cuff tear. 2. Intra-articular biceps tendinosis with partial tear. 3. Mild AC joint degenerative arthrosis with mild encroachment on the rotator cuff and trace subacrom ial bursitis. Signer Name: Teri Jacobson MD Signed: 11/01/2021 2:11 PM Workstation Name: [id number]
== END 2021-11-01 10:31 | disposition home or self-care (01) ==
LOC: MRI 10:30
PROVIDERS: ATTEND Orthopaedic Surgery Sports Medicine
DX: S46.221A Laceration of muscle, fascia and tendon of other parts of biceps, right arm, initial encounter (principal); M19.011 Primary osteoarthritis, right shoulder; M75.121 Complete rotator cuff tear or rupture of right shoulder, not specified as traumatic; M75.81 Other shoulder lesions, right shoulder; M77.8 Other enthesopathies, not elsewhere classified; M75.51 Bursitis of right shoulder; X58.XXXA Exposure to other specified factors, initial encounter; Y93.9 Activity, unspecified; Y92.89 Other specified places as the place of occurrence of the external cause; Y99.8 Other external cause status

== ENCOUNTER 2021-12-30 08:46 | Outpatient (CLI) | payer BC, OTHER | END 2021-12-30 08:47 | disposition home or self-care (01) | LOC: ECHO 08:46 | PROVIDERS: ATTEND Internal Medicine Cardiovascular Disease | DX: I44.7 Left bundle-branch block, unspecified (principal) | CPT/HCPCS: 93306; C8929 ==

== ENCOUNTER 2022-01-08 12:29 | Outpatient (CLI) | payer BC ==
[2022-01-08 13:21] LABS: BUN/Creatinine Ratio 24; Blood Urea Nitrogen 24 mg/dL (7-17); Calcium 9.2 mg/dL (8.4-10.2); Hemolysis Index 0
== END 2022-01-08 12:30 | disposition home or self-care (01) ==
LOC: LAB 12:29
PROVIDERS: ATTEND Internal Medicine Cardiovascular Disease
DX: I34.0 Nonrheumatic mitral (valve) insufficiency (principal)
CPT/HCPCS: 36415; 80048